=== PATIENT | female | born 1960 | race Caucasian/White ===

== ENCOUNTER → 2019-04-11 | Outpatient (CLI) | payer BC ==
[~2019-04-11] MED LIST: BUPROPRION; LOTRONEX; SOLODYN; Z BUPROPION HCL PO; Z.0.CRESTOR10 MG PO; Z.0.LEXAPRO20 MG PO; [UNRECOGNIZED DRUG - OTHER]; [UNRECOGNIZED DRUG - OTHER] PO; [UNRECOGNIZED DRUG - OTHER] PO; [UNRECOGNIZED DRUG - OTHER] PO; crestor; lexapro
--- NOTE | 2019-04-15 10:39 | Polysomnography ---
DATE OF STUDY: 04/11/2019 REFERRING PHYSICIAN: STUDY: Polysomnogram report. Patient of Dr. Alejandre. A 59-year-old woman. [place] sleepiness Score is elevated at 21, BMI 34.4, previously diagnosed with obstructive sleep apnea. This study represents a nasal CPAP titration. Sleep onset latency was only 2-1/2 minutes. Sleep efficiency was 98%. She was titrated from 5 pressure of 16 cm of water pressure. Apneas and hypopneas were essentially eliminated. There was no O2 desaturation. No respiratory event related arousals did persist. The patient was fitted with Salazar and Zephyrkel Eson small nasal mask. It is recommended that she be given a trial of nasal CPAP at 16 cm of water pressure. Heated humidification should be considered, it is recommended to improve the patient's comfort and compliance. The patient does not wish to use a nasal mask. ResMed AirFit P10, small pillows also provided good fit. MD YURY Stacy/MODL /[id number]
== END ==
LOC: SLEEP 20:00
PROVIDERS: ATTEND Internal Medicine
DX: G47.33 Obstructive sleep apnea (adult) (pediatric) (principal)
CPT/HCPCS: 95811